=== PATIENT | male | born 1950 | race Caucasian/White ===

== ENCOUNTER 2016-03-29 14:52 | Emergency (ER) | payer OTHER ==
[~2016-03-29] VITALS: Wt 70.0 kg
--- NOTE | 2016-03-29 17:18 | ERA ---
ER Documentation Chief Complaint Date/Time DATE: 03/29/16 TIME: 17:11 Chief Complaint FEELS DIZZY SINCE TODAY. NO TRAUMA NO HEADACHE. NO NEURO DEFICIT (RIGOBERTO MURILLO) HPI 66-year-old male patient resenting to the emergency room today for sudden onset of dizziness lasting 3-5 minutes. Symptoms occurred at 0900 this morning [place]. Patient reports of dizziness described as subjective. States he had to hold onto the wall so that he would not lose his balance until dizziness subsided. Patient reports symptoms are not present at this time. Denies nausea, vomiting, chest pain, shortness of breath, palpitations. She reports left-sided neck pain without injury starting this morning with pain 3/10 on pain scale. Remote history of vertigo 2 years ago. Positive history of hypertension current blood pressure is She denies alcohol or smoking. (RIGOBERTO MURILLO) Patient is a 66-year-old gentleman who reports an episode of dizziness today he states occurred while he was walking. He states it lasted approximately 2 minutes. It was described as a sensation of feeling off balance as well as his vision becoming blurry. He says he had to grab the wall because he felt like he might fall though he did not actually fall. He says his symptoms completely resolved after 2 minutes and currently he is asymptomatic. He denies any chest pain, palpitations, nausea, vomiting, earache, paresthesias, focal weakness, or headache. He says he had a similar episode several years ago and nobody could discover the cause for this. He says he has not been recently ill. He has not had any recent fevers, coughing, congestion, rhinorrhea, sore throat, or otalgia. Nothing seemed to trigger this episode nor make it go away. It just clinic came and went on its own. The remainder review systems are negative. (FLAVIA DAVIES) ROS All systems reviewed and are negative except as per history of present illness. (RIGOBERTO MURILLO) Medications Home Meds Active Scripts Meclizine Hcl* (Antivert*) 12.5 Mg Tab, 25 MG PO Q6H Y for DIZZINESS, #20 TAB 0 Refills Prov:FLAVIA DAVIES 03/29/16 Reported Medications Tamsulosin Hcl* (Tamsulosin Hcl*) 0.4 Mg Cap.er.24h, 0.4 MG PO DAILY, CAP 2/6/17 Aspirin* (Aspirin* EC) 81 Mg Tablet.dr, 81 MG PO DAILY, TAB 03/29/16 Amlodipine Besylate* (Norvasc*) 5 Mg Tablet, 5 MG PO DAILY, TAB 03/29/16 Pravastatin Sodium* (Pravastatin Sodium*) 10 Mg Tablet, 10 MG PO HS, TAB 03/29/16 Allergies Allergies: Coded Allergies: No Known Allergy (Unverified , 03/29/16) PMhx/Soc History of benign prostate hypertrophy, on terazosin Patient also reports taking a daily aspirin History of hypertension. Hx Miscellaneous Medical Probl: Yes (PROSTATE) Smoking Status: Never smoker (CHIDI,RIGOBERTO) Physical Exam Vitals Vital Signs Date Time Temp Pulse Resp B/P Pulse Ox O2 Delivery O2 Flow Rate FiO2 03/29/16 19:48 62 18 155/79 99 Room Air 150/69 153/72 03/29/16 14:58 98.7 72 20 140/75 97 (RAYFLAVIA) Physical Exam Const: No acute distress Head: Atraumatic Eyes: Normal Conjunctiva ENT: Normal External Ears, Nose and Mouth. Neck: full range of motion with rotation and lateral bending, no spinous process tenderness, palpable paraspinal tenderness on the left..~ No meningismus. Resp: Clear to auscultation bilaterally Cardio: Regular rate and rhythm, no murmurs, S1/S2, no S3, S4. Abd: Soft, non tender, non distended. Normal bowel sounds Skin: Back: Ext: No cyanosis, or edema Neur: Awake and alert, Neuro: M/S: Alert and oriented Face: EOMI, face and pharynx with normal sensation and function Motor: Normal strength . Bilateral handgrips normal. Strong. No pronator drift, smile symmetric Sensation: Normal sensation throughout to light touch Speech: Normal and clear Cerebel: Normal coordination patient ambulating without deficit, negative Romberg, able to alternate hands on lap, able to make bilateral PE signs. Normal gait Normal finger to nose DTR: 2+ and symmetric upper/lower extremities Psych: Normal Mood and Affect (CHIDI,RIGOBERTO) Physical Exam Const: Well-developed well-nourished male sitting on the bed no acute distress Head: Atraumatic normocephalic Eyes: Normal Conjunctiva ENT: Normal External Ears, Nose and Mouth. Neck: Full range of motion. No meningismus. Resp: Clear to auscultation bilaterally Cardio: [Regular rate and rhythm, no murmurs, no rubs, no gallop Abd: Soft, non tender, non distended. Normal bowel sounds Skin: No petechiae or rashes Back: No midline or flank tenderness Ext: No cyanosis, or edema Neur: [Awake and alert, GCS equals 15, moves all extremities equally, cranial nerves II through XII are intact, strength is 5 out of 5 in both upper and lower extremities, finger to nose is intact, gait is intact Psych: Normal Mood and Affect (FLAVIA DAVIES) Result Diagram: 03/29/16193903/29/161939 Results 24 hrs Laboratory Tests Test 03/29/16 19:40 Activated Partial Thromboplast Time 26.9Sec Alanine Aminotransferase (ALT/SGPT) 29IU/L Albumin 4.5g/dl Albumin/Globulin Ratio 1.32 Alkaline Phosphatase 68IU/L Anion Gap 17 Aspartate Amino Transf (AST/SGOT) 32IU/L Basophils # 0.010^3/ul Basophils % 0.5% Blood Urea Nitrogen 15mg/dl Calcium Level 9.4mg/dl Carbon Dioxide Level 27mmol/L Chloride Level 103mmol/L Creatinine 0.81mg/dl Direct Bilirubin 0.00mg/dl Eosinophils # 0.110^3/ul Eosinophils % 1.3% Globulin 3.40g/dl Glucose Level 99mg/dl Hematocrit 42.9% Hemoglobin 14.8g/dl INR International Normalized Ratio 1.09 Indirect Bilirubin 0.8mg/dl Lymphocytes # 1.910^3/ul Lymphocytes % 30.6% Mean Corpuscular Hemoglobin 33.2pg Mean Corpuscular Hemoglobin Concent 34.6g/dl Mean Corpuscular Volume 96.1fl Mean Platelet Volume 8.1fl Monocytes # 0.410^3/ul Monocytes % 6.7% Neutrophils # 3.710^3/ul Neutrophils % 60.9% Nucleated Red Blood Cells # 0.010^3/ul Nucleated Red Blood Cells % 0.0/100WBC Platelet Count 92167^3/UL Potassium Level 4.2mmol/L Prothrombin Time 14.1Sec Prothrombin Time Ratio 1.1 Red Blood Count 4.4610^6/ul Red Cell Distribution Width 12.6% Sodium Level 143mmol/L Total Bilirubin 0.8mg/dl Total Protein 7.9g/dl Troponin I < 0.012ng/ml White Blood Count 6.110^3/ul Current Medications Medications (Trade) Dose Ordered Sig/Sabi Route PRN Reason Start Time Stop Time Status Last Admin Dose Admin Sodium Chloride (NS) 1,000 ml @ 1,000 mls/hr Q1H STAT IV 03/29/16 19:25 03/29/16 20:24 DC 03/29/16 19:44 (FLAVIA DAVIES) Results 24 hrs Laboratory Tests Test 03/29/16 19:40 Activated Partial Thromboplast Time 26.9Sec Alanine Aminotransferase (ALT/SGPT) 29IU/L Albumin 4.5g/dl Albumin/Globulin Ratio 1.32 Alkaline Phosphatase 68IU/L Anion Gap 17 Aspartate Amino Transf (AST/SGOT) 32IU/L Basophils # 0.010^3/ul Basophils % 0.5% Blood Urea Nitrogen 15mg/dl Calcium Level 9.4mg/dl Carbon Dioxide Level 27mmol/L Chloride Level 103mmol/L Creatinine 0.81mg/dl Direct Bilirubin 0.00mg/dl Eosinophils # 0.110^3/ul Eosinophils % 1.3% Globulin 3.40g/dl Glucose Level 99mg/dl Hematocrit 42.9% Hemoglobin 14.8g/dl INR International Normalized Ratio 1.09 Indirect Bilirubin 0.8mg/dl Lymphocytes # 1.910^3/ul Lymphocytes % 30.6% Mean Corpuscular Hemoglobin 33.2pg Mean Corpuscular Hemoglobin Concent 34.6g/dl Mean Corpuscular Volume 96.1fl Mean Platelet Volume 8.1fl Monocytes # 0.410^3/ul Monocytes % 6.7% Neutrophils # 3.710^3/ul Neutrophils % 60.9% Nucleated Red Blood Cells # 0.010^3/ul Nucleated Red Blood Cells % 0.0/100WBC Platelet Count 39426^3/UL Potassium Level 4.2mmol/L Prothrombin Time 14.1Sec Prothrombin Time Ratio 1.1 Red Blood Count 4.4610^6/ul Red Cell Distribution Width 12.6% Sodium Level 143mmol/L Total Bilirubin 0.8mg/dl Total Protein 7.9g/dl Troponin I < 0.012ng/ml White Blood Count 6.110^3/ul Current Medications Medications (Trade) Dose Ordered Sig/Sabi Route PRN Reason Start Time Stop Time Status Last Admin Dose Admin Sodium Chloride (NS) 1,000 ml @ 1,000 mls/hr Q1H STAT IV 03/29/16 19:25 03/29/16 20:24 DC 03/29/16 19:44 (CHIDI,RIGOBERTO) Procedures/MDM Procedures EKG: Rate/Rhythm: Sinus rhythm with PACs ventricular rate 63 bpm QRS, ST, T-waves: Right bundle branch block Impression: Abnormal ECG ROCEDURE: XR Chest. CLINICAL INDICATION: Dizziness. TECHNIQUE: PA upright view of the chest was obtained. COMPARISON: None. FINDINGS: The cardiomediastinal silhouette is within normal limits. The lungs are clear. There is no evidence for pleural effusion, pneumothorax or pulmonary vascular congestion. The osseous structures are intact with no evidence for acute abnormality. IMPRESSION: No evidence for acute intrathoracic pathology. Physician Vanda Date Time Electronically viewed and signed by Physician Vanda on 03/29/2016 17:42 Nexus criteria assessment: MLTTP: None Intoxication: None Distracting Injury: None Focal Neurodeficit: None AMS: None Patient does not meet criteria for cervical imaging. Medical decision making Pleasant 66-year-old male patient coming in today for intermittent dizziness without angina or syncope. Physical exam negative findings for aortic stenosis , no murmur, hypertension present 140 ECG abnormal chest x-ray normal no JVD Case discussed with Dr Roe patient will be transferred from ED to to ED 1 4 for evaluation of dizziness. (CHIDI,RIGOBERTO) Differential includes but is not limited to cardiac arrhythmia, TIA, vertigo, vasovagal syncope, idiopathic dizziness, volume depletion EKG shows normal sinus rhythm at approximately 65 bpm with a right ventricular conduction delay consistent with a right bundle branch block, no acute ischemia is noted, no old EKG available for comparison Chest x-ray does not reveal any acute cardiopulmonary process pulmonary CT the head does not reveal any acute intracranial process per the radiologist Patient does not tilt on his orthostatics 2124: Patient is completely asymptomatic at this time. He is returned to his neurological baseline. His evaluation here is unremarkable. It is felt he is stable for discharge home he may follow-up with his primary care physician for any further evaluation and treatment. This has been discussed with this patient and family are in agreement at this time. (FLAVIA DAVIES) Departure Diagnosis: Primary Impression: Dizziness Condition: Stable Patient Instructions: Dizziness, Unk Cause, Possible Causes of Dizziness or Fainting [facility] Additional Instructions: Please be careful when getting up or changing positions as this can trigger dizziness. If at any time you feel dizzy please sit down see do not fall. Please schedule an appointment with your primary care physician or one of the following clinics that are listed for further evaluation and treatment of your dizziness. Return to the emergency department if any time he develop any new or worsening symptoms. RIGOBERTO MURILLO Mar 29, 2016 17:18 FLAVIA DAVIES Mar 29, 2016 21:26
--- NOTE | 2016-03-29 17:42 | RADRPT ---
PROCEDURE: XR Chest. CLINICAL INDICATION: Dizziness. TECHNIQUE: PA upright view of the chest was obtained. COMPARISON: None. FINDINGS: The cardiomediastinal silhouette is within normal limits. The lungs are clear. There is no evidenc e for pleural effusion, pneumothorax or pulmonary vascular congestion. The osseous structures are i ntact with no evidence for acute abnormality. RPTAT:HJJR IMPRESSION: No evidence for acute intrathoracic pathology. Physician Vanda Date Time Electronically viewed and signed by Physician Vanda on 03/29/2016 17:42 JR/
[2016-03-29] MEDS ORDERED: SOD CHLORIDE 0.9% 1,000 ML IV STA (19:25)
--- NOTE | 2016-03-29 19:45 | RADRPT ---
PROCEDURE: CT brain without contrast CLINICAL INDICATION: Dizziness TECHNIQUE: A CT of the brain was performed utilizing axial sections from the skull base through th e vertex without contrast. Sagittal and coronal images were also reformatted. The exam CTDIvol = 43. 86 mGy and DLP = 720.23 mGy-cm. COMPARISON: None available FINDINGS: No acute intracranial hemorrhage is identified. There is no mass effect or midline shift. No extra -axial fluid collection is seen. The ventricles and sulci are within normal limits for size and con figuration given the patient's provided age of 66 years. The density of the brain is within normal limits. Bernal-white differentiation is preserved. The osseous structures are unremarkable. The mastoid air cells and visualized paranasal sinuses are clear. RPTAT:HJJR IMPRESSION: Unremarkable noncontrast CT of the brain. Physician Vanda Date Time Electronically viewed and signed by Physician Vanda on 03/29/2016 19:44 /
[2016-03-29 19:56] LABS: BASOPHILS % 0.5 % (0.0-2.0); EOSINOPHILS # 0.1 10^3/ul (0.0-0.5); EOSINOPHILS % 1.3 % (0.0-7.0); HEMATOCRIT 42.9 % (42.0-52.0); HEMOGLOBIN 14.8 g/dl (14.0-18.0); LYMPHOCYTES # 1.9 10^3/ul (0.8-2.9); LYMPHOCYTES % 30.6 % (15.0-51.0); MEAN CORPUSCULAR HEMOGLOBIN 33.2 pg (29.0-33.0); MEAN CORPUSCULAR HGB CONC 34.6 g/dl (32.0-37.0); MEAN CORPUSCULAR VOLUME 96.1 fl (82.0-101.0); MEAN PLATELET VOLUME 8.1 fl (7.4-10.4); MONOCYTE # 0.4 10^3/ul (0.3-0.9); MONOCYTES % 6.7 % (0.0-11.0); NEUTROPHIL # 3.7 10^3/ul (1.6-7.5); NEUTROPHILS % 60.9 % (39.0-77.0); PLATELET COUNT 200 10^3/UL (140-440); RED BLOOD COUNT 4.46 10^6/ul (4.70-6.10); RED CELL DISTRIBUTION WIDTH 12.6 % (11.5-14.5); UNCORRECTED WBC 6.1 10^3/ul (4.8-10.8); WHITE BLOOD COUNT 6.1 10^3/ul (4.8-10.8)
[2016-03-29 19:57] LABS: CHLORIDE 103 mmol/L (97-110)
[2016-03-29 19:58] LABS: ALBUMIN 4.5 g/dl (3.3-4.9); INR 1.09; PROTIME 14.1 Sec (12.2-14.2); PT RATIO 1.1; SODIUM 143 mmol/L (135-144)
[2016-03-29 19:59] LABS: PARTIAL THROMBOPLASTIN TIME 26.9 Sec (25.0-35.0); POTASSIUM 4.2 mmol/L (3.5-5.1)
[2016-03-29 20:00] LABS: CREATININE 0.81 mg/dl (0.61-1.24)
[2016-03-29 20:01] LABS: ALANINE AMINOTRANSFERASE 29 IU/L (13-69); ALBUMIN/GLOBULIN RATIO 1.32; ALKALINE PHOSPHATASE 68 IU/L (42-121); ANION GAP 17 (8-16); ASPARTATE AMINO TRANSFERASE 32 IU/L (15-46); BILIRUBIN,INDIRECT 0.8 mg/dl (0-1.1); BILIRUBIN,TOTAL 0.8 mg/dl (0.2-1.3); BLOOD UREA NITROGEN 15 mg/dl (7-20); CALCIUM 9.4 mg/dl (8.4-10.2); CARBON DIOXIDE 27 mmol/L (21-31); GLUCOSE 99 mg/dl (70-220); TOTAL PROTEIN 7.9 g/dl (6.1-8.1)
[2016-03-29 20:03] LABS: CONDITION 1
[2016-03-29 20:16] LABS: TROPONIN-I < 0.012 ng/ml (0.00-0.12)
[2016-03-29] MEDS ORDERED: PRAV10TA43 PO (20:49)
[2016-03-29] MEDS ORDERED: ASPI-664 PO (20:50)
[2016-03-29] MEDS ORDERED: AMLO5TAB4 PO (20:50)
[2016-03-29] MEDS ORDERED: TAMS0.4C2 PO (20:51)
[2016-03-29] MEDS ORDERED: MECL12.574 PO (21:28)
[2016-03-29 21:35] VITALS: BP 143/82; PULSE 58; RESP 16; TEMP 98.4
== END 2016-03-29 21:45 | disposition home or self-care (01) ==
LOC: FTE 14:52 → E/R 21:45
DX: R42 Dizziness and giddiness (principal); I10 Essential (primary) hypertension; Z79.82 Long term (current) use of aspirin
CPT/HCPCS: 36415; 70450; 71010; 80053; 84484; 85025; 85610; 85730; 93005; J7030; Z7502

== ENCOUNTER 2017-02-23 11:02 | Emergency (ER) | END 2017-02-23 11:15 | disposition home or self-care (01) ==